=== PATIENT | female | born 1945 | race Caucasian/White ===

== ENCOUNTER 2020-07-12 19:52 | Emergency (ER) | payer MEDICARE ==
[~2020-07-12] VITALS: Ht 162.6 cm; Wt 49.4 kg
[~2020-07-12 19:52] MED LIST: ACET325 PO; ASPI81CH PO; ATEN50 PO; ATOR10 PO; ESTR2 PO; FISH OIL 1,2001 EAC7 PO; METO50 PO; METO50ER PO; NITROGLYCERIN TD; OMEP20ER PO
[2020-07-12] MEDS ORDERED: RANOLAZINE ER500 M2 PO (20:52)
== END 2020-07-12 21:50 | disposition home or self-care (01) ==
LOC: ER 19:52
DX: M25.512 Pain in left shoulder (principal); F17.200 Nicotine dependence, unspecified, uncomplicated; Z79.899 Other long term (current) drug therapy; Z88.6 Allergy status to analgesic agent
CPT/HCPCS: 73030; 93005; 93010; 96372; 99283-25; A9270; J1885

== ENCOUNTER → 2021-12-26 | Emergency (ER) | payer OTHER ==
[~2021-12-26] VITALS: Ht 160 cm; Wt 50.4 kg
[~2021-12-26] MED LIST changes: +RANOLAZINE ER500 M2 PO
== END ==
LOC: ER 11:59
DX: R04.0 Epistaxis (principal); E78.5 Hyperlipidemia, unspecified; F17.200 Nicotine dependence, unspecified, uncomplicated; Z79.899 Other long term (current) drug therapy
CPT/HCPCS: A9270